=== PATIENT | female | born 1995 | race Caucasian/White ===

== ENCOUNTER 2020-09-09 14:13 | Outpatient (REF) | payer OTHER, SELFPAY ==
[2020-09-09 15:14] LABS: COVID-19 Test Negative (Negative); IDNOW Serial# 55D5AD1C
== END 2020-09-09 14:14 | disposition home or self-care (01) ==
LOC: HO.LAB 14:13
PROVIDERS: Visit Provider Internal Medicine
DX: Z20.822 Contact with and (suspected) exposure to COVID-19 (principal)
CPT/HCPCS: 36415; 87635; C9803

== ENCOUNTER 2021-10-18 15:22 | Outpatient (REF) | payer OTHER, SELFPAY ==
[2021-10-18 16:07] LABS: COVID-19 Test Negative (Negative); IDNOW Serial# 55D5AD1C
== END 2021-10-18 15:23 | disposition home or self-care (01) ==
LOC: HO.LAB 15:22
PROVIDERS: Visit Provider Internal Medicine
DX: Z20.822 Contact with and (suspected) exposure to COVID-19 (principal)
CPT/HCPCS: 87635; C9803

== ENCOUNTER 2022-07-04 11:58 | Emergency (ER) | payer OTHER, SELFPAY ==
--- NOTE | ~2022-07-04 | CT_ITS ---
EXAMINATION: CT ABDOMEN AND PELVIS WITHOUT CONTRAST CLINICAL INFORMATION: Mid abdominal pain COMPARISON: Ultrasound of the mid abdomen 07/04/2022 TECHNIQUE: Multidetector volumetric imaging was performed from the superior aspect of the liver through the pubic symphysis. Sagittal and coronal reformatted images were obtained on the technologist's workstation. This CT examination was performed using dose optimization techniques as appropriate, variously including the following: *Automated exposure control *Adjustment of mA and/or kV according to patient size (this includes techniques or standardized protocols for targeted exams where dose is matched to indication/reason for exam; i.e. extremities or head) *Use of iterative reconstruction technique DLP: 516 mGy-cm FINDINGS: LUNG BASES: The visualized lung bases are unremarkable. LIVER, GALLBLADDER, AND BILIARY TREE: The liver is normal in size, shape, and attenuation. No focal hepatic lesion or biliary ductal dilatation is present. The gallbladder is unremarkable with no evidence of radiopaque gallstones, gallbladder wall thickening, or obvious pericholecystic inflammatory changes. PANCREAS: Unremarkable. SPLEEN: Unremarkable. ADRENAL GLANDS: Unremarkable. KIDNEYS AND URETERS: The kidneys are normal in size, shape, and attenuation. No hydronephrosis, hydroureter, or calculi seen. No perinephric stranding. BLADDER: Unremarkable. GASTROINTESTINAL TRACT: The small and large bowel are unremarkable. The appendix is unremarkable. ABDOMINAL WALL: No significant hernia is appreciated. LYMPH NODES: Normal. VASCULAR: Unremarkable. PELVIC VISCERA: Uterus is retroverted. There is no adnexal abnormality. No fluid in the cul-de-sac. OSSEOUS STRUCTURES: Unremarkable. CT/CT abdomen pelvis wo IV con IMPRESSION: No acute abnormality CT scan abdomen pelvis. Fleischner guidelines were followed.
--- NOTE | ~2022-07-04 | US_ITS ---
EXAMINATION: US ABDOMEN LIMITED CLINICAL INFORMATION: Right upper quadrant pain with nausea and vomiting. COMPARISON: None TECHNIQUE: Real-time imaging of the right upper quadrant abdominal viscera. FINDINGS: PANCREAS: Normal. No abnormal mass or peripancreatic inflammatory change. LIVER: Normal. The liver is normal in size. The liver contour is normal. Parenchymal echogenicity is normal. No focal hepatic lesion. There is no intrahepatic biliary duct dilatation seen. GALLBLADDER: Normal. The gallbladder is physiologically distended without evidence of stones, sludge, polyps, wall thickening or pericholecystic fluid. COMMON BILE DUCT: Normal in caliber measuring 0.3 cm in diameter. RIGHT KIDNEY: Normal. No hydronephrosis. No renal calculi or focal parenchymal lesions. The kidney measures 10.8 cm in maximum dimension. FREE FLUID: None. US/US abdomen limited IMPRESSION: No evidence of acute cholecystitis or pancreatitis.
[2022-07-04 12:03] VITALS: BP 110/67; PULSE 67; O2SAT 99
[2022-07-04 12:22] VITALS: BP 103/68; PULSE 98; RESP 19; TEMP 36.6; O2SAT 99; BMI 30.2
--- NOTE | 2022-07-04 12:22 | ED_ITS ---
HPI - Abdominal Pain General Chief Complaint: Abdominal Pain <Alyce Harrison CNP - Last Filed: 07/04/22 12:28> Stated Complaint: UPPER ABD PAIN W/VOMITING PER EMS <Alyce Harrison CNP - Last Filed: 07/04/22 12:28> Time Seen by Provider: 07/04/22 16:46 <Alyce Harrison CNP - Last Filed: 07/04/22 12:28> Source: patient <Galilea Alvarado MD - Last Filed: 07/04/22 19:11> Mode of arrival: ambulatory <Galilea Alvarado MD - Last Filed: 07/04/22 19:11> History of Present Illness HPI narrative: 27-year-old female without significant past medical history presents with 3rd episode of epigastric discomfort that worsens with laying on her back and patient reports radiates into her back and it started again at 22:00 last night has been associated with multiple episodes of nausea and vomiting and chills. <Galilea Alvarado MD - Last Filed: 07/04/22 19:11> Related Data Home Medications: Previous Rx's Medication Instructions Recorded omeprazole 40 mg capsule,delayed 40 mg PO DAILY #30 caps 07/04/22 release ondansetron HCl 4 mg tablet 4 mg PO Q8H PRN nausea and 07/04/22 vomiting 5 days #10 tabs <Alyce Harrison CNP - Last Filed: 07/04/22 12:28> Allergies/Adverse Reactions: Allergies Allergy/AdvReac Type Severity Reaction Status Date / Time No Known Allergies Allergy Verified 07/04/22 12:26 <Alyce Harrison CNP - Last Filed: 07/04/22 12:28> Review of Systems Review of Systems Pertinent positives and negatives as stated in HPI. <Galilea Alvarado MD - Last Filed: 07/04/22 19:11> PMFSH Past Medical History Source: nursing notes reviewed <Galilea Alvarado MD - Last Filed: 07/04/22 19:11> Medical History: Medical History Asthma Iron deficiency anemia <Alyce Harrison CNP - Last Filed: 07/04/22 12:28> Social History Social History: Social History Alcohol intake: never Smoked in Last 30 Days: No Use of substances other than those prescribed or required for medical reasons: No Advance Directives: No Advance Directives Information Provided: No Patient : No <Alyce HarrisonEM - Last Filed: 07/04/22 12:28> Physical Exam ED Vital Signs: Vital Signs - 24 hr 07/04/22 12:22 07/04/22 18:09 Temperature 98 F 99.2 F Pulse Rate 98 106 H Respiratory Rate 19 18 Blood Pressure 103/68 102/71 Pulse Oximetry 99 100 Oxygen Delivery Method Room Air BMI result Body Mass Index 30.2 <Alyce Harrison CNP - Last Filed: 07/04/22 12:28> Vital Signs - 24 hr 07/04/22 12:22 07/04/22 18:09 Temperature 98 F 99.2 F Pulse Rate 98 106 H Respiratory Rate 19 18 Blood Pressure 103/68 102/71 Pulse Oximetry 99 100 Oxygen Delivery Method Room Air BMI result Body Mass Index 30.2 VITAL SIGNS: Reviewed. GENERAL: Well developed, well nourished, in no acute distress. HEAD: Normocephalic/atraumatic EYES: PERRLA, EOMI LUNGS: Normal breath sounds. No adventitious sounds or accessory muscle use. SpO2<99> CARDIOVASCULAR: Regular rate and rhythm without noted murmurs ABDOMEN: Soft, mild tenderness to palpation epigastric, non-distended with bowel sounds. MUSCULOSKELETAL: No tenderness, deformities, or effusions noted on gross inspection. EXTREMITIES: No cyanosis, clubbing or edema. SKIN: Inspection of the skin reveals no rashes NEUROLOGIC: Alert and oriented x 4. Strength and sensation to light touch were grossly intact x 4. <Galilea Alvarado MD - Last Filed: 07/04/22 19:11> Course Course Course Narrative: This is an RME: Additional HPI, ROS, PE not included below will be deferred to primary provider. Patient is a 27-year-old female who presents emergency department for evaluation of abdominal pain via EMS. She states this is the 3rd time it has occurred. Sudden onset severe upper abdominal pain last night 2200; epigastric pain that radiates across the right upper quadrant and into her back, and associated nausea and vomiting. Also endorsing urinary frequency, uncertain of status, states she is currently having vaginal bleeding but is not consistent with typical menses. Similar episode last week, and 2 weeks prior, which self-resolved. Denies fevers, chills, lower abdominal pain, constipation, diarrhea, bloody or dark stools, dysuria. Plan: Labs, urinalysis, urine preg, viral testing, right upper quadrant ultrasound <Alyce Harrison CNP - Last Filed: 07/04/22 12:28> Medical Decision Making Medical Decision Making [facility] Narrative: 27-year-old female who initially was suspected to have possible pancreatitis or gallbladder issues after review of all investigations my interpretation is that patient has acute gastritis and potentially had a component of viral gastroenteritis. There is no evidence to suggest cholecystitis, pancreatitis, urine is negative. Patient received Zofran and will receive a GI cocktail and on re-evaluation was able to tolerate oral intake. She otherwise appears quite comfortable will be discharged home on 40 mg of omeprazole for 30 days and instructions to follow-up with primary care provider. <Galilea Alvarado MD - Last Filed: 07/04/22 19:11> Differential Diagnosis Differential Diagnoses: The differential diagnosis associated with the presentation includes <Lia Cristina MD - Last Filed: 07/04/22 19:11> Please see the discussion above <Galilea Alvarado MD - Last Filed: 07/04/22 19:11> Lab Data [facility] Lab Attestation statement: I reviewed the patient's lab results. <Galilea Alvarado MD - Last Filed: 07/04/22 19:11> Please see the discussion above <Galilea Alvarado MD - Last Filed: 07/04/22 19:11> Result Diagrams: 07/04/22 12:36 07/04/22 12:36 <Alyce Harrison CNP - Last Filed: 07/04/22 12:28> Labs: Lab Results 07/04/22 07/04/22 07/04/22 Range/Units 12:33 12:33 12:36 WBC 8.8 (4.8-10.8) X10*3/uL RBC 4.83 (4.20-5.50) X10*6/uL Hgb 13.4 (12.0-16.0) g/dl Hct 41.7 (37.0-47.0) % MCV 86.3 (80.0-98.0) fL MCH 27.7 (27.0-33.0) pg MCHC 32.1 (31.0-35.0) g/dl RDW 13.6 (11.0-16.0) % Plt Count 328 (160-400) X10*3/uL MPV 10.1 (9.4-12.3) fL Immature Gran % (Auto) 0.3 (0.0-0.4) % Neut % (Auto) 85.4 H (45-73) % Lymph % (Auto) 8.3 L (20-40) % Greene % (Auto) 5.1 (2-11) % Eos % (Auto) 0.7 (0-4) % Baso % (Auto) 0.2 (0-2) % Lymph # (Auto) 0.7 L (1.2-4.9) X10*3/uL Greene # (Auto) 0.5 (0.1-1.2) X10*3/uL Eos # (Auto) 0.1 (0.0-0.4) X10*3/uL Baso # (Auto) 0.0 (0.0-0.2) X10*3/uL Abs Immat Gran (auto) 0.03 (0.00-0.03) X10*3/uL Absolute Neuts (auto) 7.5 (2.0-8.3) x10*3/uL Absolute Nucleated RBC 0.000 (0.0-0.012) X10*3/uL Nucleated RBC % (auto) 0.0 (0.0-0.2) /100WBC Sodium (135-145) mmol/L Potassium (3.3-5.1) mmol/L Chloride (96-108) mmol/L Carbon Dioxide (22-29) mmol/L Anion Gap (12-20) BUN (9-16) mg/dL Creatinine (0.5-1.4) mg/dL Estim Creat Clear Calc Estimated GFR Random Glucose (60-115) mg/dL Calcium (8.4-10.2) mg/dL Total Bilirubin (0.0-1.0) mg/dL AST (5-31) U/L ALT (0-31) U/L Alkaline Phosphatase (39-117) U/L Total Protein (6.5-8.0) g/dL Albumin (3.5-5.0) g/dL Lipase (8-78) U/L Urine Color Yellow Urine Appearance Cloudy Urine pH 5.5 (5.0-9.0) Ur Specific [place] >= 1.030 H (1.005-1.025) Urine Protein 30 (1+) H (Neg-Trace) mg/dL Urine Glucose (UA) Negative (Negative) mg/dL Urine Ketones >=160 (Negative) mg/dL Urine Blood Large (3+) H (Negative) Urine Nitrite Negative (Negative) Ur Leukocyte Esterase Trace H (Negative) Urine RBC >20 H (0-2) /HPF Urine WBC 0-5 (0-5) /HPF Ur Squamous Epith Cells 6-10 (0-2) /HPF Urine Bacteria 1+ (None Seen) Hyaline Casts 0-2 (0-2) /LPF Urine Test NEGATIVE (NEGATIVE) COVID-19 (SHA) (Negative) COVID-19 Clin Com Influenza Type A (DIYA) (Negative) Influenza Type B (DIYA) (Negative) Influenza A & B Note 07/04/22 07/04/22 07/04/22 Range/Units 12:36 12:36 12:36 WBC (4.8-10.8) X10*3/uL RBC (4.20-5.50) X10*6/uL Hgb (12.0-16.0) g/dl Hct (37.0-47.0) % MCV (80.0-98.0) fL MCH (27.0-33.0) pg MCHC (31.0-35.0) g/dl RDW (11.0-16.0) % Plt Count (160-400) X10*3/uL MPV (9.4-12.3) fL Immature Gran % (Auto) (0.0-0.4) % Neut % (Auto) (45-73) % Lymph % (Auto) (20-40) % Greene % (Auto) (2-11) % Eos % (Auto) (0-4) % Baso % (Auto) (0-2) % Lymph # (Auto) (1.2-4.9) X10*3/uL Greene # (Auto) (0.1-1.2) X10*3/uL Eos # (Auto) (0.0-0.4) X10*3/uL Baso # (Auto) (0.0-0.2) X10*3/uL Abs Immat Gran (auto) (0.00-0.03) X10*3/uL Absolute Neuts (auto) (2.0-8.3) x10*3/uL Absolute Nucleated RBC (0.0-0.012) X10*3/uL Nucleated RBC % (auto) (0.0-0.2) /100WBC Sodium 140 (135-145) mmol/L Potassium 3.9 (3.3-5.1) mmol/L Chloride 107 (96-108) mmol/L Carbon Dioxide 23 (22-29) mmol/L Anion Gap 14 (12-20) BUN 18 H (9-16) mg/dL Creatinine 0.64 (0.5-1.4) mg/dL Estim Creat Clear Calc 117.6 Estimated GFR > 60 Random Glucose 95 (60-115) mg/dL Calcium 9.5 (8.4-10.2) mg/dL Total Bilirubin 1.4 H (0.0-1.0) mg/dL AST 17 (5-31) U/L ALT 12 (0-31) U/L Alkaline Phosphatase 98 (39-117) U/L Total Protein 7.6 (6.5-8.0) g/dL Albumin 4.3 (3.5-5.0) g/dL Lipase 9 (8-78) U/L Urine Color Urine Appearance Urine pH (5.0-9.0) Ur Specific [place] (1.005-1.025) Urine Protein (Neg-Trace) mg/dL Urine Glucose (UA) (Negative) mg/dL Urine Ketones (Negative) mg/dL Urine Blood (Negative) Urine Nitrite (Negative) Ur Leukocyte Esterase (Negative) Urine RBC (0-2) /HPF Urine WBC (0-5) /HPF Ur Squamous Epith Cells (0-2) /HPF Urine Bacteria (None Seen) Hyaline Casts (0-2) /LPF Urine Test (NEGATIVE) COVID-19 (SHA) Negative (Negative) COVID-19 Clin Com See Note Influenza Type A (DIYA) Negative (Negative) Influenza Type B (DIYA) Negative (Negative) Influenza A & B Note See Note <Alyce Martin Christy, LOSS PREVENTION SUPERVISOR - Last Filed: 07/04/22 12:28> Lab Results 07/04/22 07/04/22 07/04/22 Range/Units 12:33 12:33 12:36 WBC 8.8 (4.8-10.8) X10*3/uL RBC 4.83 (4.20-5.50) X10*6/uL Hgb 13.4 (12.0-16.0) g/dl Hct 41.7 (37.0-47.0) % MCV 86.3 (80.0-98.0) fL MCH 27.7 (27.0-33.0) pg MCHC 32.1 (31.0-35.0) g/dl RDW 13.6 (11.0-16.0) % Plt Count 328 (160-400) X10*3/uL MPV 10.1 (9.4-12.3) fL Immature Gran % (Auto) 0.3 (0.0-0.4) % Neut % (Auto) 85.4 H (45-73) % Lymph % (Auto) 8.3 L (20-40) % Greene % (Auto) 5.1 (2-11) % Eos % (Auto) 0.7 (0-4) % Baso % (Auto) 0.2 (0-2) % Lymph # (Auto) 0.7 L (1.2-4.9) X10*3/uL Greene # (Auto) 0.5 (0.1-1.2) X10*3/uL Eos # (Auto) 0.1 (0.0-0.4) X10*3/uL Baso # (Auto) 0.0 (0.0-0.2) X10*3/uL Abs Immat Gran (auto) 0.03 (0.00-0.03) X10*3/uL Absolute Neuts (auto) 7.5 (2.0-8.3) x10*3/uL Absolute Nucleated RBC 0.000 (0.0-0.012) X10*3/uL Nucleated RBC % (auto) 0.0 (0.0-0.2) /100WBC Sodium (135-145) mmol/L Potassium (3.3-5.1) mmol/L Chloride (96-108) mmol/L Carbon Dioxide (22-29) mmol/L Anion Gap (12-20) BUN (9-16) mg/dL Creatinine (0.5-1.4) mg/dL Estim Creat Clear Calc Estimated GFR Random Glucose (60-115) mg/dL Calcium (8.4-10.2) mg/dL Total Bilirubin (0.0-1.0) mg/dL AST (5-31) U/L ALT (0-31) U/L Alkaline Phosphatase (39-117) U/L Total Protein (6.5-8.0) g/dL Albumin (3.5-5.0) g/dL Lipase (8-78) U/L Urine Color Yellow Urine Appearance Cloudy Urine pH 5.5 (5.0-9.0) Ur Specific [place] >= 1.030 H (1.005-1.025) Urine Protein 30 (1+) H (Neg-Trace) mg/dL Urine Glucose (UA) Negative (Negative) mg/dL Urine Ketones >=160 (Negative) mg/dL Urine Blood Large (3+) H (Negative) Urine Nitrite Negative (Negative) Ur Leukocyte Esterase Trace H (Negative) Urine RBC >20 H (0-2) /HPF Urine WBC 0-5 (0-5) /HPF Ur Squamous Epith Cells 6-10 (0-2) /HPF Urine Bacteria 1+ (None Seen) Hyaline Casts 0-2 (0-2) /LPF Urine Test NEGATIVE (NEGATIVE) COVID-19 (SHA) (Negative) COVID-19 Clin Com Influenza Type A (DIYA) (Negative) Influenza Type B (DIYA) (Negative) Influenza A & B Note 07/04/22 07/04/22 07/04/22 Range/Units 12:36 12:36 12:36 WBC (4.8-10.8) X10*3/uL RBC (4.20-5.50) X10*6/uL Hgb (12.0-16.0) g/dl Hct (37.0-47.0) % MCV (80.0-98.0) fL MCH (27.0-33.0) pg MCHC (31.0-35.0) g/dl RDW (11.0-16.0) % Plt Count (160-400) X10*3/uL MPV (9.4-12.3) fL Immature Gran % (Auto) (0.0-0.4) % Neut % (Auto) (45-73) % Lymph % (Auto) (20-40) % Greene % (Auto) (2-11) % Eos % (Auto) (0-4) % Baso % (Auto) (0-2) % Lymph # (Auto) (1.2-4.9) X10*3/uL Greene # (Auto) (0.1-1.2) X10*3/uL Eos # (Auto) (0.0-0.4) X10*3/uL Baso # (Auto) (0.0-0.2) X10*3/uL Abs Immat Gran (auto) (0.00-0.03) X10*3/uL Absolute Neuts (auto) (2.0-8.3) x10*3/uL Absolute Nucleated RBC (0.0-0.012) X10*3/uL Nucleated RBC % (auto) (0.0-0.2) /100WBC Sodium 140 (135-145) mmol/L Potassium 3.9 (3.3-5.1) mmol/L Chloride 107 (96-108) mmol/L Carbon Dioxide 23 (22-29) mmol/L Anion Gap 14 (12-20) BUN 18 H (9-16) mg/dL Creatinine 0.64 (0.5-1.4) mg/dL Estim Creat Clear Calc 117.6 Estimated GFR > 60 Random Glucose 95 (60-115) mg/dL Calcium 9.5 (8.4-10.2) mg/dL Total Bilirubin 1.4 H (0.0-1.0) mg/dL AST 17 (5-31) U/L ALT 12 (0-31) U/L Alkaline Phosphatase 98 (39-117) U/L Total Protein 7.6 (6.5-8.0) g/dL Albumin 4.3 (3.5-5.0) g/dL Lipase 9 (8-78) U/L Urine Color Urine Appearance Urine pH (5.0-9.0) Ur Specific [place] (1.005-1.025) Urine Protein (Neg-Trace) mg/dL Urine Glucose (UA) (Negative) mg/dL Urine Ketones (Negative) mg/dL Urine Blood (Negative) Urine Nitrite (Negative) Ur Leukocyte Esterase (Negative) Urine RBC (0-2) /HPF Urine WBC (0-5) /HPF Ur Squamous Epith Cells (0-2) /HPF Urine Bacteria (None Seen) Hyaline Casts (0-2) /LPF Urine Test (NEGATIVE) COVID-19 (SHA) Negative (Negative) COVID-19 Clin Com See Note Influenza Type A (DIYA) Negative (Negative) Influenza Type B (DIYA) Negative (Negative) Influenza A & B Note See Note <Galilea Alvarado MD - Last Filed: 07/04/22 19:11> Radiology Impression Radiologist Impression: My interpretation is in agreement with radiology's impression of the i maging studies. <Galilea Alvarado MD - Last Filed: 07/04/22 19:11> Medications Administered Discontinued Medications Generic Name Dose Route Start Last Admin Trade Name Freq PRN Reason Stop Dose Admin Ondansetron HCl 4 mg 07/04/22 12:26 07/04/22 18:09 Ondansetron Odt 4 Mg Tab.Rapdis TRANSLINGU 07/04/22 12:27 4 mg ONCE ONE Administration <Alyce Harrison CNP - Last Filed: 07/04/22 12:28> Medications Administered Discontinued Medications Generic Name Dose Route Start Last Admin Trade Name Freq PRN Reason Stop Dose Admin Ondansetron HCl 4 mg 07/04/22 12:26 07/04/22 18:09 Ondansetron Odt 4 Mg Tab.Rapdis TRANSLINGU 07/04/22 12:27 4 mg ONCE ONE Administration <Galilea Alvarado MD - Last Filed: 07/04/22 19:11> Discharge Plan Discharge Clinical Impression: Gastritis <Alyce Harrison CNP - Last Filed: 07/04/22 12:28> Patient Disposition: Home, Self-Care <Alyce Harrison CNP - Last Filed: 07/04/22 12:28> Instructions: Gastritis (ED), Diet for Stomach Ulcers and Gastritis (ED) <Alyce Harrison CNP - Last Filed: 07/04/22 12:28> Additional Instructions: 1. Please follow-up with your primary care provider in the next 2-3 days and discuss a referral to GI for further outpatient investigations. You are being started on omeprazole. Return to the ER for any worsening symptoms. <Alyce Harrison CNP - Last Filed: 07/04/22 12:28> Prescriptions: New omeprazole 40 mg capsule,delayed release(DR/EC) 40 mg PO DAILY Qty: 30 0RF ondansetron HCl 4 mg tablet 4 mg PO Q8H PRN (Reason: nausea and vomiting) 5 Days Qty: 10 0RF <Alyce Harrison CNP - Last Filed: 07/04/22 12:28>
[2022-07-04 12:47] LABS: MANUAL DIFF FLAG NO
[2022-07-04 12:49] LABS: Basophils Percent Auto 0.2 % (0-2); Eosinophils Absolute Auto 0.1 X10*3/uL (0.0-0.4); Eosinophils Percent Auto 0.7 % (0-4); Hematocrit 41.7 % (37.0-47.0); Hemoglobin 13.4 g/dl (12.0-16.0); Imm Gran Abs Auto 0.03 X10*3/uL (0.00-0.03); Imm Gran Pct Auto 0.3 % (0.0-0.4); Lymphocytes Absolute Auto 0.7 X10*3/uL (1.2-4.9); Lymphocytes Percent Auto 8.3 % (20-40); Mean Corpuscular HGB Conc 32.1 g/dl (31.0-35.0); Mean Corpuscular Hemoglobin 27.7 pg (27.0-33.0); Mean Corpuscular Volume 86.3 fL (80.0-98.0); Mean Platelet Volume 10.1 fL (9.4-12.3); Monocytes Absolute Auto 0.5 X10*3/uL (0.1-1.2); Monocytes Percent Auto 5.1 % (2-11); Neutrophils Absolute Auto 7.5 x10*3/uL (2.0-8.3); Neutrophils Percent Auto 85.4 % (45-73); Platelet Count 328 X10*3/uL (160-400); Red Blood Count 4.83 X10*6/uL (4.20-5.50); Red Cell Distribution Width 13.6 % (11.0-16.0); White Blood Count 8.8 X10*3/uL (4.8-10.8)
[2022-07-04 12:59] LABS: Appearance Urine Cloudy; Color Urine Yellow; Glucose Urine UA Negative (Negative); Leukocyte Esterase Urine Trace (Negative); Nitrite Urine Negative (Negative); PH 5.5 (5.0-9.0); Specific Gravity - Urine >= 1.030 (1.005-1.025); UMIC TRIGGER UACC YES; Urine Blood Large (3+) (Negative); Urine Ketones >=160 mg/dL (Negative); Urine Protein 30 (1+) mg/dL (Neg-Trace)
[2022-07-04 13:03] LABS: Alanine Aminotransferase 12 U/L (0-31); Albumin Level 4.3 g/dL (3.5-5.0); Alkaline Phosphatase 98 U/L (39-117); Anion Gap 14 (12-20); Aspartate Amino Transferase 17 U/L (5-31); Bilirubin Total 1.4 mg/dL (0.0-1.0); Blood Urea Nitrogen 18 mg/dL (9-16); Calcium 9.5 mg/dL (8.4-10.2); Carbon Dioxide 23 mmol/L (22-29); Chloride 107 mmol/L (96-108); Creatinine Clr Calc Pharmacy 117.6; Estimated Glomerular Filt Rate > 60; Glucose Random 95 mg/dL (60-115); Lipase 9 U/L (8-78); Potassium 3.9 mmol/L (3.3-5.1); Sodium 140 mmol/L (135-145); Total Protein 7.6 g/dL (6.5-8.0)
[2022-07-04 13:04] LABS: UPreg QC Valid YES; Urine Pregnancy NEGATIVE (NEGATIVE)
[2022-07-04 13:05] LABS: Bacteria Urine 1+ (None Seen); Hyaline Casts Urine 0-2 /LPF (0-2); RBC Urine >20 /HPF (0-2); WBC Urine 0-5 /HPF (0-5)
[2022-07-04 13:08] LABS: COVID-19 Test Negative (Negative); IDNOW Serial# BCCEAD1C
[2022-07-04 13:11] LABS: IDNOW Serial# 9DB6401D; Influenza A Negative (Negative); Influenza B2 Negative (Negative)
[2022-07-04 18:09] VITALS: BP 102/71; PULSE 106; RESP 18; TEMP 37.3; O2SAT 100
[2022-07-04] MEDS: Ondansetron ODT 4 MG TAB.RAPDIS TRANSLINGU (18:09)
--- NOTE | 2022-07-04 18:11 | PC.NURSE ---
patient a&ox3, vss, pt medicated per order, pt awaiting provider, will continue to monitor
[2022-07-04] MEDS: Lidocaine HCl Viscous 2 % 15 ML SOLUTION 10 ML MUCOUS MEM (19:13)
[2022-07-04] MEDS: Magnesium Hydrox/Alum Hydrox 30 ML ORAL.SUSP PO (19:13)
== END 2022-07-04 19:52 | disposition home or self-care (01) ==
PROVIDERS: Nurse Practitioner Family; Emergency Provider Student in an Organized Health Care Education/Training Program
DX: K29.70 Gastritis, unspecified, without bleeding (principal); Z20.822 Contact with and (suspected) exposure to COVID-19
CPT/HCPCS: 74176; 76705; 80053; 81001; 81003; 81025; 83690; 85025; 87502; 87635; 99284

== ENCOUNTER 2023-03-16 17:31 | Emergency (ER) | payer OTHER, SELFPAY ==
--- NOTE | ~2023-03-16 | US_ITS ---
EXAMINATION: US PELVIS CLINICAL INFORMATION: Pelvic pain, bleeding with clots. COMPARISON: None available. TECHNIQUE: Ultrasound of the pelvis is performed using both transabdominal and transvaginal transducers along with Doppler. Transvaginal imaging is performed due to inadequate visualization transabdominally. FINDINGS: Uterus: The uterus is retroverted and measures 7.7 x 4.0 x 5.7 cm and volume 91.9 mL. The double wall endometrial thickness measures 0.28). The uterus is smooth in contour and has normal myometrial echogenicity. No visible fibroid. Adnexa: Both ovaries are visualized. There is normal color flow to the adnexa. There is no ovarian torsion. Right ovary measures 4.0 x 1.9 x 1.7 cm. And 6.76 mL volume. There are multiple large anechoic cysts with the largest cyst measuring 1.3 x 0.9 x 1.2 cm. Normal arterial and venous flow seen in the right ovary. Left ovary measures 3.6 x 1.9 x 1.9 cm and volume 6.8 mL. There are large anechoic cysts seen. There is small amount of free fluid in cul-de-sac with echogenic floating debris within. US/US pelvic ovarian doppler IMPRESSION: 1. Small amount of echogenic free fluid in the cul-de-sac. 2. Bilateral large ovarian cysts. 3. The uterus is unremarkable.
--- NOTE | ~2023-03-16 | US_ITS ---
EXAMINATION: US PELVIS CLINICAL INFORMATION: Pelvic pain, bleeding with clots. COMPARISON: None available. TECHNIQUE: Ultrasound of the pelvis is performed using both transabdominal and transvaginal transducers along with Doppler. Transvaginal imaging is performed due to inadequate visualization transabdominally. FINDINGS: Uterus: The uterus is retroverted and measures 7.7 x 4.0 x 5.7 cm and volume 91.9 mL. The double wall endometrial thickness measures 0.28). The uterus is smooth in contour and has normal myometrial echogenicity. No visible fibroid. Adnexa: Both ovaries are visualized. There is normal color flow to the adnexa. There is no ovarian torsion. Right ovary measures 4.0 x 1.9 x 1.7 cm. And 6.76 mL volume. There are multiple large anechoic cysts with the largest cyst measuring 1.3 x 0.9 x 1.2 cm. Normal arterial and venous flow seen in the right ovary. Left ovary measures 3.6 x 1.9 x 1.9 cm and volume 6.8 mL. There are large anechoic cysts seen. There is small amount of free fluid in cul-de-sac with echogenic floating debris within. US/US pelvic and transvaginal IMPRESSION: 1. Small amount of echogenic free fluid in the cul-de-sac. 2. Bilateral large ovarian cysts. 3. The uterus is unremarkable.
--- NOTE | ~2023-03-16 | CT_ITS ---
EXAMINATION: CT ABDOMEN AND PELVIS WITH CONTRAST CLINICAL INFORMATION: Severe lower abdominal pain. COMPARISON: None available. TECHNIQUE: Multidetector volumetric images were obtained from the superior aspect of the liver through the pubic symphysis following administration 85 mL of Omnipaque 350 intravenous contrast. Sagittal and coronal reformatted images were obtained on the technologist's workstation. Oral contrast: No This CT examination was performed using dose optimization techniques as appropriate, variously including the following: *Automated exposure control *Adjustment of mA and/or kV according to patient size (this includes techniques or standardized protocols for targeted exams where dose is matched to indication/reason for exam; i.e. extremities or head) *Use of iterative reconstruction technique DLP: 521 mGy-cm FINDINGS: LUNG BASES: The visualized lung bases are unremarkable. LIVER, GALLBLADDER, AND BILIARY TREE: The liver is normal in size, shape, and attenuation. No focal hepatic lesion or biliary ductal dilatation is present. The gallbladder is unremarkable with no evidence of radiopaque gallstones, gallbladder wall thickening, or obvious pericholecystic inflammatory changes. PANCREAS: Unremarkable. SPLEEN: Unremarkable. ADRENAL GLANDS: Unremarkable. KIDNEYS AND URETERS: The kidneys are normal in size, shape, and attenuation. No hydronephrosis, hydroureter, or calculi seen. No perinephric stranding. BLADDER: The bladder is nondistended with mild bladder wall thickening. GASTROINTESTINAL TRACT: There is scattered stool and gas seen throughout the colon without distention. The small bowel loops are normal caliber. Appendix is not seen. No free air or free fluid seen. ABDOMINAL WALL: No significant hernia is appreciated. LYMPH NODES: Normal. VASCULAR: Unremarkable. PELVIC VISCERA: The uterus is retroverted. No adnexal mass or free fluid seen. OSSEOUS STRUCTURES: No aggressive lytic or sclerotic process seen. CT/CT abdomen pelvis w IV con IMPRESSION: 1. No acute intra-abdominal process seen. 2. Moderate constipation. 3. Retroverted uterus. No pelvic mass or free fluid. Fleischner guidelines were followed.
[2023-03-16 17:33] VITALS: BP 99/70; PULSE 82; RESP 18; TEMP 36.9; O2SAT 99; BMI 30.3
[2023-03-16 18:08] LABS: MANUAL DIFF FLAG NO
[2023-03-16 18:10] LABS: Basophils Percent Auto 0.5 % (0-2); Eosinophils Absolute Auto 0.2 X10*3/uL (0.0-0.4); Eosinophils Percent Auto 2.3 % (0-4); Hematocrit 39.6 % (37.0-47.0); Hemoglobin 12.9 g/dl (12.0-16.0); Imm Gran Abs Auto 0.02 X10*3/uL (0.00-0.03); Imm Gran Pct Auto 0.2 % (0.0-0.4); Lymphocytes Absolute Auto 2.4 X10*3/uL (1.2-4.9); Lymphocytes Percent Auto 28.8 % (20-40); Mean Corpuscular HGB Conc 32.6 g/dl (31.0-35.0); Mean Corpuscular Hemoglobin 27.7 pg (27.0-33.0); Mean Corpuscular Volume 85.2 fL (80.0-98.0); Mean Platelet Volume 9.9 fL (9.4-12.3); Monocytes Absolute Auto 0.5 X10*3/uL (0.1-1.2); Monocytes Percent Auto 6.3 % (2-11); Neutrophils Absolute Auto 5.2 x10*3/uL (2.0-8.3); Neutrophils Percent Auto 61.9 % (45-73); Platelet Count 300 X10*3/uL (160-400); Red Blood Count 4.65 X10*6/uL (4.20-5.50); Red Cell Distribution Width 13.4 % (11.0-16.0); White Blood Count 8.4 X10*3/uL (4.8-10.8)
[2023-03-16 18:11] LABS: Appearance Urine Turbid; Color Urine Yellow; Glucose Urine UA Negative (Negative); Leukocyte Esterase Urine Moderate (2+) (Negative); Nitrite Urine Negative (Negative); Specific Gravity - Urine 1.025 (1.005-1.025); UMIC TRIGGER UACC YES; Urine Blood Large (3+) (Negative); Urine Ketones Negative (Negative); Urine Protein 100 (2+) mg/dL (Neg-Trace)
[2023-03-16 18:12] LABS: UPreg QC Valid YES; Urine Pregnancy NEGATIVE (NEGATIVE)
[2023-03-16 18:15] LABS: Bacteria Urine 4+ (None Seen); RBC Urine >20 /HPF (0-2); UACC Culture Trigger YES; WBC Urine >50 /HPF (0-5)
[2023-03-16 18:24] LABS: Anion Gap 12 (12-20); Blood Urea Nitrogen 15 mg/dL (9-16); Calcium 9.7 mg/dL (8.4-10.2); Carbon Dioxide 25 mmol/L (22-29); Chloride 107 mmol/L (96-108); Estimated Glomerular Filt Rate > 60; Glucose Random 78 mg/dL (60-115); Potassium 4.2 mmol/L (3.3-5.1); Sodium 140 mmol/L (135-145)
--- NOTE | 2023-03-16 18:54 | ED_ITS ---
HPI - Female Genitourinary General Chief complaint: Urogenital-Female Stated complaint: pelvic pain Time Seen by Provider: 03/16/23 18:52 Source: patient Mode of arrival: ambulatory Limitations: no limitations History of Present Illness HPI Narrative: This is a 27 year old female no past medical history presenting to the emergency department for compalints of blood in urine, pelvic pain, nausea for the past few days worsening acutely today. Patient reports she also has some associated lower abdominal discomfort in the suprapubic region. She tells me that every time she wipes after she urinates she notes blood in her urine. Denies vaginal bleeding. Reports nausea intermittently. Tells me that she thinks her pelvic hurts, last time this happened she had an ovarian cyst. Patient is in a monogamous relationship with 1 partner does not think she has any STDs but is willing to get tested does not think she needs prophylactic treatment. Unlikely that she is she tells me. Some a/c burning w/ urination Denies fevers, chills, vomiting, diarrhea, headache, vision changes, chest pain and shortness of breath. Related Data Previous Rx's Medication Instructions Recorded omeprazole 40 mg capsule,delayed 40 mg PO DAILY #30 caps 07/04/22 release ondansetron HCl 4 mg tablet 4 mg PO Q8H PRN nausea and 07/04/22 vomiting 5 days #10 tabs cefuroxime axetil 250 mg tablet 250 mg PO BID 7 days #14 tabs 03/16/23 phenazopyridine 100 mg tablet 200 mg (2 x 100 mg) PO TID 2 days 03/16/23 (Pyridium) #6 tabs Allergies Allergy/AdvReac Type Severity Reaction Status Date / Time lidocaine [From Lidoderm] Allergy Rash Verified 03/16/23 17:40 Review of Systems 2 Review of Systems: Constitutional : No Weight loss, No Fever, No Chills, No Fatigue, No Malaise ENT/Mouth : No sore throat, No Rhinorrhea Eyes: No Eye Pain, No Swelling, No Redness Cardiovascular : No Chest Pain, No SOB, No Dyspnea on Exertion, No Orthopnea, No Edema, No Palpitations Respiratory : No Cough, No Sputum, No Wheezing Gastrointestinal : No Nausea, No Vomiting, No Diarrhea, No Constipation, No abdominal Pain, No Hematochezia, No Melena Genitourinary : No Dysuria, No Urinary Frequency, No Hematuria, Musculoskeletal : No joint pain, No Myalgias, No Joint Swelling Skin : No Skin Lesions, No rash Neuro : No Weakness, No Numbness, No Dizziness, No Headache Psych : No Anxiety/Panic, No Depression All other systems reviewed and are negative Yes all other systems are reviewed and are negative COUNT INCLUDES THE [facility] Past Medical History Attestation statement: The following information was validated with the patient. Source: old records reviewed and nursing notes reviewed Medical History Iron deficiency anemia Asthma Social History Social History Alcohol intake: never Smoked in Last 30 Days: Yes Use of substances other than those prescribed or required for medical reasons: No Advance Directives: No Advance Directives Information Provided: No Physical Exam 2 Vital Signs: Vital Signs: Last Vital Signs Temp 98.4 F 03/16/23 17:33 Pulse 75 03/16/23 19:16 Resp 16 03/16/23 19:16 BP 100/63 03/16/23 19:16 Pulse Ox 98 03/16/23 19:16 O2 Del Method Room Air 03/16/23 19:16 BMI result Body Mass Index 30.3 vss Appearance: Alert.? Oriented X3.? No acute distress.? Head: Normocephalic, atraumatic, no step-offs or deformities Eyes: Pupils equal, round and reactive to light.? Neck: Normal inspection.? Neck supple.? CVS: Normal heart rate and rhythm.? Pulses normal.? Respiratory: No respiratory distress.? Breath sounds normal.? Abdomen: Soft and nontender.? Skin: Skin warm and dry.? Normal skin color.? Normal skin turgor.? Extremities: No lower extremity edema.? No calf ttp. 5/5 strength to bilateral upper and lower extremities Pelvic exam: Elaine ESTES: cervix appears to be discolored red/purple w/ errythema and foul smelling dc that is white/yellow. No lesions or masses noted no cervical motion tenderness. Neuro: Oriented X 3.? No motor deficit.? No sensory deficit. CN 2-12 intact Course Reevaluation(s) Reevaluation #1: CBC unremarkable. Chemistry no acute findings. Urine grossly infected with a large amount of bacteria, leukocyte esterases and blood. No Trichomonas or yeast seen. CT scan and ultrasound are pending at this time. Time: 20:27 Reevaluation #2: CT scan with no acute intra-abdominal process seen, moderate constipation. Retroverted uterus with no pelvic mass or Fleet fluid. Her ultrasound of pelvis/transvaginal small amount of echogenic free fluid in the cul-de-sac, bilateral large ovarian cyst, uterus unremarkable. Normal flow, no signs of torsion. Patient feeling better would like to go home. Will ttreat for UTI, Educated patient on diagnosis and treatment plan, answered all question, patient verbalizes understanding. At this time patient will be discharged home, advised to return with new or worsening symptoms. Educated on worrisome signs and symptoms and when to return. At this time I feel comfortable discharge home. Time: 22:05 Medications Administered Discontinued Medications Generic Name Dose Route Start Last Admin Trade Name Freq PRN Reason Stop Dose Admin Iohexol 100 ml 03/16/23 19:59 03/16/23 20:00 Iohexol 350 Mg/Ml 100 Ml Infus..Btl IV 03/16/23 20:00 85 ml ONCE ONE Administration Medical Decision Making Medical Decision Making [facility] Narrative: 1928 27 year old female presents w/ pelvic pain and dysuria X 2 days PE w/ cervix appears to be discolored red/purple w/ errythema and foul smelling dc that is white/yellow. No lesions or masses noted no cervical motion tenderness. Also a/c suprapubic discomfort Concerns for UTI versus cystitis versus kidney stone. Unlikely torsion, ectopic , acute abdomen, appendicitis, diverticulitis, pancreatitis, cholecystitis, obstruction. Plan labs, imaging, urine Differential Diagnosis Differential Diagnoses: The differential diagnosis associated with the presentation includes Concerns for UTI versus cystitis versus kidney stone. Unlikely torsion, ectopic , acute abdomen, appendicitis, diverticulitis, pancreatitis, cholecystitis, obstruction. Admission/Observation Consideration of admission/observation: Escalation of care including admission/observation considered Unlikely Lab Data [facility] Lab Attestation statement: I reviewed the patient's lab results. 03/16/23 18:01 03/16/23 18:01 Labs: Lab Results 03/16/23 Range/Units 18:01 WBC 8.4 (4.8-10.8) X10*3/uL RBC 4.65 (4.20-5.50) X10*6/uL Hgb 12.9 (12.0-16.0) g/dl Hct 39.6 (37.0-47.0) % MCV 85.2 (80.0-98.0) fL MCH 27.7 (27.0-33.0) pg MCHC 32.6 (31.0-35.0) g/dl RDW 13.4 (11.0-16.0) % Plt Count 300 (160-400) X10*3/uL MPV 9.9 (9.4-12.3) fL Immature Gran % (Auto) 0.2 (0.0-0.4) % Neut % (Auto) 61.9 (45-73) % Lymph % (Auto) 28.8 (20-40) % [place] % (Auto) 6.3 (2-11) % Eos % (Auto) 2.3 (0-4) % Baso % (Auto) 0.5 (0-2) % Lymph # (Auto) 2.4 (1.2-4.9) X10*3/uL [place] # (Auto) 0.5 (0.1-1.2) X10*3/uL Eos # (Auto) 0.2 (0.0-0.4) X10*3/uL Baso # (Auto) 0.0 (0.0-0.2) X10*3/uL Abs Immat Gran (auto) 0.02 (0.00-0.03) X10*3/uL Absolute Neuts (auto) 5.2 (2.0-8.3) x10*3/uL Absolute Nucleated RBC 0.000 (0.0-0.012) X10*3/uL Nucleated RBC % (auto) 0.0 (0.0-0.2) /100WBC Sodium 140 (135-145) mmol/L Potassium 4.2 (3.3-5.1) mmol/L Chloride 107 (96-108) mmol/L Carbon Dioxide 25 (22-29) mmol/L Anion Gap 12 (12-20) BUN 15 (9-16) mg/dL Creatinine 0.66 (0.5-1.4) mg/dL Estim Creat Clear Calc 114.0 Estimated GFR > 60 Random Glucose 78 (60-115) mg/dL Calcium 9.7 (8.4-10.2) mg/dL Urine Color Yellow Urine Appearance Turbid Urine pH 7.0 (5.0-9.0) Ur Specific [place] 1.025 (1.005-1.025) Urine Protein 100 (2+) H (Neg-Trace) mg/dL Urine Glucose (UA) Negative (Negative) mg/dL Urine Ketones Negative (Negative) mg/dL Urine Blood Large (3+) H (Negative) Urine Nitrite Negative (Negative) Ur Leukocyte Esterase Moderate (2+) H (Negative) Urine RBC >20 H (0-2) /HPF Urine WBC >50 H (0-5) /HPF Ur Squamous Epith Cells 6-10 (0-2) /HPF Urine Bacteria 4+ (None Seen) Hyaline Casts 3-5 (0-2) /LPF Urine Test NEGATIVE (NEGATIVE) Independent Interpretation I performed an independent interpretation of an: Ultrasound ( US/US pelvic and transvaginal IMPRESSION: 1. Small amount of echogenic free fluid in the cul-de-sac. 2. Bilateral large ovarian cysts. 3. The uterus is unremarkable. ) and CT Scan (CT/CT abdomen pelvis w IV con IMPRESSION: 1. No acute intra- abdominal process seen. 2. Moderate constipation. 3. Retroverted uterus. No pelvic mass or free fluid. ) Radiology Impression Discussion of test interpretation with radiology: I have reviewed the radiologist's reading. Prescription Management I considered prescription management with: Antibiotic Critical Care Time Critical Care Time Critical Care Time: No Discharge Plan Discharge Clinical Impression: Urinary tract infection, Abdominal pain, Vaginal discharge, Pelvic pain Patient Disposition: Home, Self-Care Instructions: Urinary Tract Infection in Women (DC), Abdominal Pain (ED) Additional Instructions: Take your medications as prescribed. If you were prescribed antibiotics today, it is important that you take your medication to their entirety, do not skip any doses, do not finish them early. Follow-up with your primary care provider this week. Follow up with OBGYN as soon as possible 1-3 days Return to the emergency department with new or worsening symptoms. Such as fevers, chills, chest pain, shortness of breath, nausea, vomiting, dizziness, headache, vision changes, lethargy In case of emergency call 911 US/US pelvic and transvaginal IMPRESSION: 1. Small amount of echogenic free fluid in the cul-de-sac. 2. Bilateral large ovarian cysts. 3. The uterus is unremarkable. CT/CT abdomen pelvis w IV con IMPRESSION: 1. No acute intra-abdominal process seen. 2. Moderate constipation. 3. Retroverted uterus. No pelvic mass or free fluid. Fleischner guidelines were followed. Prescriptions: New cefuroxime axetil 250 mg tablet 250 mg PO BID 7 Days Qty: 14 0RF phenazopyridine [Pyridium] 100 mg tablet 200 mg PO TID 2 Days Qty: 6 0RF No Action omeprazole 40 mg capsule,delayed release(DR/EC) 40 mg PO DAILY Qty: 30 0RF ondansetron HCl 4 mg tablet 4 mg PO Q8H PRN (Reason: nausea and vomiting) 5 Days Qty: 10 0RF Referrals: Marylou Coates MD [Primary Care Provider] - 2 days Stand Alone Forms: Work/School Release
[2023-03-16 19:16] VITALS: BP 100/63; PULSE 75; RESP 16; O2SAT 98
[2023-03-16] MEDS: iohexoL 350 MG/ML 100 ML INFUS..BTL IV (20:00)
--- NOTE | 2023-03-16 20:58 | PC.NURSE ---
pt requesting food at this time. VENU Cartwright aware and okayed to eat. U/S at bedside
[2023-03-16 22:04] VITALS: BP 100/61; PULSE 90; RESP 18; O2SAT 98
[2023-03-17 10:23] LABS: CT PCR NOT DETECTED (Not Detect.); NG PCR NOT DETECTED (Not Detect.)
[2023-03-18 09:17] LABS: BV Int Neg Control Negative (Negative); BV Int Pos Control Positive (Positive)
== END 2023-03-16 22:17 | disposition home or self-care (01) ==
PROVIDERS: Physician Assistant; Emergency Provider Internal Medicine; PCP Internal Medicine
DX: N39.0 Urinary tract infection, site not specified (principal); N89.8 Other specified noninflammatory disorders of vagina; R10.2 Pelvic and perineal pain; D50.9 Iron deficiency anemia, unspecified
CPT/HCPCS: 0353U; 36415; 74177; 76830; 76856; 80048; 81001; 81025; 85025; 87086; 87088; 87186; 87480; 87510; 87660; 93975; 99284; Q9967